=== PATIENT | female | born 1970 | race Caucasian/White ===

== ENCOUNTER 2024-05-31 10:09 | Observation (INO) ==
--- NOTE | 2024-05-03 13:14 | PAT Medication Instructions ---
Medication Instructions Date of Service May 03, 2024 Home Medications bupropion HCl 300 mg 24 hr tablet, extended release 300 mg PO HS hydrochlorothiazide 25 mg tablet 25 mg PO QAM norgestrel 0.3 mg-ethinyl estradiol 30 mcg tablet (Elinest) 1 tab PO HS nortriptyline 25 mg capsule 100 mg PO HS pantoprazole 40 mg tablet,delayed release 40 mg PO HS potassium chloride 20 mEq tablet,extended release 20 meq PO HS venlafaxine 150 mg capsule,extended release 24 hr 150 mg PO HS venlafaxine 75 mg tablet,extended release 24 hr 75 mg PO HS ASK your prescriber and surgeon norgestrel 0.3 mg-ethinyl estradiol 30 mcg tablet (Elinest) 1 tab PO HS DO NOT take the morning of surgery hydrochlorothiazide 25 mg tablet 25 mg PO QAM Take evening before surgery bupropion HCl 300 mg 24 hr tablet, extended release 300 mg PO HS nortriptyline 25 mg capsule 100 mg PO HS pantoprazole 40 mg tablet,delayed release 40 mg PO HS potassium chloride 20 mEq tablet,extended release 20 meq PO HS venlafaxine 150 mg capsule,extended release 24 hr 150 mg PO HS venlafaxine 75 mg tablet,extended release 24 hr 75 mg PO HS OTHERWISE NOTHING TO EAT OR DRINK AFTER MIDNIGHT Other Notes If you have any questions please call us at [phone] or [phone] or [phone] or [phone]
--- NOTE | 2024-05-10 11:54 | Anesthesiology Consultation ---
Date of Service May 10, 2024 Assessment & Plan (1) Encounter for pre-operative examination: Chart Review Chart Review: Acceptable Risk for Surgery (pending PCP clearance ) and Patient seen in Pre Admission Testing - Awaiting PCP clearance 05/17/24 (Dr. Ashia Solomon [place], [place]) - Check test AM DOS Loose front lower tooth (see physical exam)- discussed with Dr Lizarraga- recommended patient attempt to see dentist prior to surgery to see if tooth needs removed. If unable to see dentist preop- patient can still proceed but will need to use extra caution with intubation. Per PAT appt on 05/10/24, no recent illness/disease exposures, illness related symptoms, or recent illness/disease positive tests. Will leave to surgeon's discretion if preop Covid testing needed Teaching & Discussion Pre-Anesthesia Teaching/Discussion Notes: Instructed NPO after midnight before surgery,except medications with 15 cc of water. Medication instructions provided according to the PAT guidelines. History Surgery Operation Date: 05/31/24 10:05 Proposed Procedures p L4-L5 Decompression and Fusion Spinal Cord Monitoring - Jorge A Foy DO Height/Weight Height: 5 ft 4 in Weight: 132.1 kg Allergies Allergy/AdvReac Type Severity Reaction Status Date / Time ciprofloxacin [From Cipro] Allergy Intermediate Rash Verified 05/02/24 10:23 latex Allergy Intermediate Blister Verified 05/02/24 10:23 morphine Allergy Intermediate personality Verified 05/02/24 10:23 changes Medications Home Medications Medication Instructions Recorded Confirmed Last Taken bupropion HCl 300 mg 24 hr tablet, 300 mg PO HS 05/02/24 05/02/24 Unknown extended release hydrochlorothiazide 25 mg tablet 25 mg PO QPM 05/02/24 05/10/24 Unknown norgestrel 0.3 mg-ethinyl 1 tab PO HS 05/02/24 05/02/24 Unknown estradiol 30 mcg tablet (Elinest) nortriptyline 25 mg capsule 100 mg PO HS 05/02/24 05/02/24 Unknown pantoprazole 40 mg tablet,delayed 40 mg PO HS 05/02/24 05/02/24 Unknown release potassium chloride 20 mEq 20 meq PO HS 05/02/24 05/02/24 Unknown tablet,extended release venlafaxine 150 mg 150 mg PO HS 05/02/24 05/02/24 Unknown capsule,extended release 24 hr venlafaxine 75 mg tablet,extended 75 mg PO HS 05/02/24 05/02/24 Unknown release 24 hr Past Medical History Medical History Bipolar disorder Depression GERD (gastroesophageal reflux disease) well controlled and stable History of COVID-2019- no residual issues Hypertension Kidney stones present and hx of Osteoarthritis Post traumatic stress disorder Snores unaware if any apnea hx of sleep study many years ago - unsure of results Thyroid nodule multiple- monitored yearly Exercise / Class Metabolic Activity III < 4 Walking/Shop/Light housework (one flight of stairs - mild SOB, no chest pain ) Past Surgical History Surgical History History of ankle surgery left History of carpal tunnel release bilat History of section x2 History of cystoscopy History of repair of rotator cuff bilat History of tooth extraction Hx of foot surgery left x2 for fx's Hx of hand surgery right, pin in middle finger for fx S/P epidural steroid injection and nerve blocks/ablations to lumbar area Past Anesthesia History No Hx of Anesthesia Complications (with exception to remote history of shoulder surgery many years ago- had to be "given medication to reverse anesthesia"- specifics unknown - possibly given too much - no issues with subsequent issues with surgeries) and No Family Hx of Anesthesia Complications History of PONV No Hx of PONV and No Hx of Motion Sickness Social History Smoking Status: Never smoker Do You Dip or Chew Tobacco: No Hx Alcohol Use: Yes Alcohol type: wine alcohol intake frequency: holidays/special occasions only Hx Substance Use: No substance use type: does not use Review of Systems Patient denies chest pain, shortness of breath, dyspnea on exertion, cough, wheezing, palpitations. No hx of seizures, stroke, VT. No hx of blood clots or blood transfusions Physical Exam Vital Signs VITALS BP 128/81 P 86 TEMP 98.2 SP02 95% RESP 16 Constitutional no acute distress ENMT Mouth: + small oral opening (mild); no TMJ clicking Thyromental Distance: > or= 3.5 Finger Breadths (3.5) Mallampati Class: III Mouth / Teeth: 2 1. Loose Neck neck extension not limited Respiratory normal respiratory effort; no respiratory distress Auscultation: lungs clear to auscultation bilaterally; no wheezes Cardiovascular Rate/Rhythm: regular rate and regular rhythm Heart Sounds: no murmur Vessels: no carotid bruit Musculoskeletal Spine: no pain with cervical ROM Extremities: extremities normal to inspection Psychiatric Orientation: alert Lab Results Anesthesia Preop Results Results Anesthesia Widget: 2 WBC 6.11 K/ul (4.8-10.8) 05/10/24 Hgb 14.0 g/dl (12.0-16.0) 05/10/24 Hct 41.5 % (37.0-47.0) 05/10/24 Plt 320 K/uL (130-400) 05/10/24 Na 139 mmol/L (136-145) 05/10/24 K 3.9 mmol/L (3.5-5.1) 05/10/24 Cl 106 mmol/L (98-107) 05/10/24 CO2 26 mmol/L (21-32) 05/10/24 BUN 19 mg/dl (6-23) 05/10/24 Creat 0.87 mg/dl (0.6-1.2) 05/10/24 Glucose Level 103 mg/dl (70-99(Fasting)) H 05/10/24 PT 10.6 Seconds (9.0-12.0) 05/10/24 PTT 27 Seconds (21-31) 05/10/24 INR 1.0 (0.9-1.1) 05/10/24 Urine Color Yellow 05/10/24 Urine Appearance Clear (Clear) 05/10/24 Urine pH 7.0 (4.5-7.5) 05/10/24 Urine Specific [place] 1.022 (1.000-1.030) 05/10/24 Urine Protein Negative (Negative) 05/10/24 Urine Glucose (UA) Negative (Negative) 05/10/24 Urine Ketones Trace (Negative) H 05/10/24 Urine Blood Negative (Negative) 05/10/24 Urine Nitrite Negative (Negative) 05/10/24 Urine Bilirubin Negative (Negative) 05/10/24 Urine Urobilinogen Negative (Negative) 05/10/24 Urine Leukocyte Esterase Negative (Negative) 05/10/24 Blood Type O Positive 05/10/24 Antibody Screen NEGATIVE 05/10/24 Testing Electrocardiogram Date: 05/10/24 Findings: + NSR @ (95bpm) Normal EKG per cardio Chest X-Ray Date: 05/10/24 Findings: + NAD
[2024-05-31 11:09] LABS: Pregnancy Test, Serum Negative (Negative)
[2024-05-31] MEDS ORDERED: ONDANSETRON INJ 2 MG/ML 2 ML VIAL ONE (11:16)
[2024-05-31] MEDS ORDERED: PROPOFOL IV EMULSION 10 MG/ML 20 ML VIAL IV ONE (11:16)
[2024-05-31] MEDS ORDERED: ROCURONIUM BROMIDE 10 MG/ML 5 ML VIAL IV ONE ×3 (11:16→13:01)
[2024-05-31] MEDS ORDERED: LIDOCAINE 2% 2 ML VIAL/AMP(20MG/ML) INFIL ONE ×2 (11:16→11:17)
[2024-05-31] MEDS: LR 60ML/HR IV SCH (11:16)
[2024-05-31] MEDS ORDERED: MIDAZOLAM HCL 1 MG/ML 2ML VIAL ONE (11:16)
[2024-05-31] MEDS ORDERED: fentaNYL citrate PF 100 MCG/2 ML VIAL ONE (11:16)
[2024-05-31] MEDS ORDERED: DEXAMETHASONE SOD INJ 4 MG/ML VIAL ONE ×2 (11:30)
[2024-05-31] MEDS: GABAPENTIN 900 MG DOSE PO SCH (11:38)
[2024-05-31] MEDS: CeleBREX 200 MG CAP PO SCH (11:38)
[2024-05-31] MEDS: ACETAMINOPHEN 500 MG TAB PO SCH (11:38)
[2024-05-31] MEDS ORDERED: ATROPINE SULFATE 0.1 MG/ML 10ML SYR IV PRN (11:39)
[2024-05-31] MEDS ORDERED: ePHEDrine sulfate 50 MG/ML AMP IV PRN (11:39)
[2024-05-31] MEDS ORDERED: ONDANSETRON INJ 2 MG/ML 2 ML VIAL IV PRN ×2 (11:39→16:35)
--- NOTE | 2024-05-31 11:55 | History & Physical Bridge Note ---
Date of Service May 31, 2024 History & Physical Bridge Note I have examined the patient, reviewed the History & Physical and in the interval since the performance of the History & Physical I have noted the following changes of clinical significance: no changes noted
--- NOTE | 2024-05-31 11:56 | History & Physical Report ---
Date of Service May 31, 2024 Assessment & Plan (1) Spondylolisthesis, lumbar region: Plan: L4-L5 decompression and fusion History of Present Illness Chief Complaint: Back and bilateral leg pain Primary Care Provider: Ashia Ashton DO This is a 54-year-old female who presents for chronic persistent back and leg pain after failing course of nonoperative care she is here for surgical invention. Allergies Allergy/AdvReac Type Severity Reaction Status Date / Time Cipro Allergy Intermediate hives Verified 05/11/24 15:21 ciprofloxacin [From Cipro] Allergy Intermediate Rash Verified 05/31/24 10:53 Quinolones Allergy Intermediate RASH Verified 05/31/24 10:53 latex Allergy Mild redness Verified 05/31/24 10:53 and rash morphine AdvReac Intermediate makes me Verified 05/31/24 10:53 crazy Home Medications Medication Instructions Recorded Confirmed Type Ergocalciferol (Vitamin D Cap) 1 tab PO 2XWK ##0 10/26/10 05/31/24 History bupropion HCl 300 mg 24 hr tablet, 300 mg PO HS 05/02/24 05/31/24 History extended release (Wellbutrin XL) hydrochlorothiazide 25 mg tablet 25 mg PO QAM 05/02/24 05/31/24 History norgestrel 0.3 mg-ethinyl 1 tab PO HS 05/02/24 05/31/24 History estradiol 30 mcg tablet (Elinest) nortriptyline 25 mg capsule 100 mg PO HS 05/02/24 05/31/24 History pantoprazole 40 mg tablet,delayed 40 mg PO HS 05/02/24 05/31/24 History release potassium chloride 20 mEq 20 meq PO HS 05/02/24 05/31/24 History tablet,extended release venlafaxine 150 mg 150 mg PO HS 05/02/24 05/31/24 History capsule,extended release 24 hr venlafaxine 75 mg tablet,extended 75 mg PO HS 05/02/24 05/31/24 History release 24 hr Past Med/Surg History Problem List (Updated 05/31/24 @ 11:56 by Jorge A Foy DO) Spondylolisthesis, lumbar region Encounter for pre-operative examination History of Medical History (Updated 05/31/24 @ 11:56 by Jorge A Foy DO) Osteoarthritis Kidney stones present and hx of GERD (gastroesophageal reflux disease) well controlled and stable Thyroid nodule multiple- monitored yearly Bipolar disorder Post traumatic stress disorder Depression Hypertension History of COVID-19 2019- no residual issues Snores unaware if any apnea hx of sleep study many years ago - unsure of results Surgical History S/P epidural steroid injection and nerve blocks/ablations to lumbar area Hx of foot surgery left x2 for fx's History of ankle surgery left Hx of hand surgery right, pin in middle finger for fx History of repair of rotator cuff bilat History of carpal tunnel release bilat History of cystoscopy History of section x2 History of tooth extraction Social History (System 05/11/24 @ 15:21 by Leonarda Shannon) Smoking Status: Never smoker Second Hand Exposure: Yes (as child); Do You Dip or Chew Tobacco: No; Tobacco Cessation Education Requested by Patient: No Hx Alcohol Use: Yes Alcohol type: wine Hx Substance Use: No Preferred Language: Hong Konger Communication Ability: Effective [employer] Psychiatrist Required: No Beliefs That Will Affect Care: None Current Living Situation: Spouse Other Information That Helps Us Care for You: No Feels Safe at Home: Yes Safety Concerns: Feels Safe At This Time Assistive Devices: Glasses Physical Exam Physical Exam: Patient is alert and oriented heart regular in rhythm Lungs clear Results & Data Results & Data Vital Signs (Past 12 Hours) Vital Signs Temp Pulse Resp BP Pulse Ox O2 Del Method 05/31/24 11:03 37 C 94 H 20 147/84 H 97 Room Air
[2024-05-31] MEDS: ceFAZolin 3000MG 3,000 MG/72.5 ML BAG IV SCH (12:21)
[2024-05-31] MEDS ORDERED: PHENYLEPHRINE 100MCG/ML 5ML SYR ONE ×2 (12:51→13:06)
[2024-05-31] MEDS: BUPIVACAINE/EPINEPHRINE 0.25% 1:200,000 30 ML VIAL ONE (13:03)
[2024-05-31] MEDS: ceFAZolin 330 MG/ML 1 GM VIAL ONE (13:04)
[2024-05-31] MEDS ORDERED: PHENYLEPHRINE HCL 10 MG/ML VIAL ONE (13:14)
[2024-05-31] MEDS: FLOSEAL HEMOSTATIC MATRIX 10ML TOP ONE (13:50)
[2024-05-31] MEDS ORDERED: SUGAMMADEX SODIUM 200 MG/2 ML VIAL IV ONE (13:52)
--- NOTE | 2024-05-31 14:03 | Operative Report ---
Post Operative Report Pre & Post Diagnosis Operation Date: 05/31/24 11:55 Pre-Op Diagnosis: #1 spondylolisthesis of Lumbar Region Spinal Stenosis #2 lumbar spondylosis with radiculopathy #3 lumbar spinal stenosis #4 morbid obesity Post-Op Diagnosis: Same I identified the patient and participated in the time-out.: Yes Procedure Operation Date: 05/31/24 11:55 #1 lumbar decompression with bilateral medial facetectomies and foraminotomies L3-L4 L4-L5. #2 posterior spinal fusion L4-L5. #3 placed posterior instrumentation using camber L4-L5. #4 interbody fusion L4-L5 #5 placement Spira 13 x 26 mm x 2 at L4-5 and #6 placement locally harvested morselized autograft in the posterior gutters. #7 placement infuse collagen sponge combined with Koros in the posterior lateral gutters and os design and interbody space. #8 application of versa wrap over the exposed dura. Surgeon Jorge A Foy, DO [employer] [facility] Consultant Leticia Anne Estimated Blood Loss 300 Findings See Below The patient is 5 foot 4 weighing over 131 kg with a BMI in excess of 49. The patient's body habitus did create significant technical difficulty with positioning exposure and the procedure itself. This added over 50% increased operative time. And recommending a modifier 22. Specimens None Indications This is a 54-year-old female presents above-mentioned diagnosis after failing course of nonoperative care is here for surgical invention. Description of Procedure Patient was met with identified informed consent obtained. Patient was then taken to the operative suite underwent intubation placed in a prone position on the Nate table atop the Sp frame. All bony promises well-padded eyes in spected to ensure no external pressure placed upon them. This point the lumbar spine was prepped and draped in normal sterile fashion. Sharp dissection with the assistance of Bovie cautery from down to and exposing the lamina transverse processes of L4-L5. From caudal to cephalad fashion complete laminectomy of L4 was performed including bilateral medial facetectomies and foraminotomies addressing severe spinal stenosis. This is followed by partial laminectomy of L3 with bilateral medial facetectomies to address all subarticular stenosis. Pedicle screws were then placed in L4-L5 bilaterally with assistance of fluoroscopy and purposes peggy placed. By way of transfer approach on the right a discectomy of L4-5 was performed endplates guarded to subcortical bleeding bone and a 13 x 26 mm Spira cage filled with os design bone graft tapped in position. Then proceeded to the left transforaminal region at L4-5. Again discectomy performed. Endplates guided to subcortical bleeding bone and a second 13 x 26 mm Spira cage filled with os designed tapped in position. The rods were then compressed locked in final position bilaterally. The transverse processes of L4-5 burred to subcortical waiting bone. Infuse collagen sponge bath Koros and local autograft placed in the posterior gutters. 15 round IBAN drain inserted. The incision was then closed with 1 Vicryl the fascia 2-0 Vicryl subcutaneously and 4 Monocryl for final skin closure. Steri-Strips and sterile dressing placed. Patient waken taken to PACU stable condition. Please note spinal cord monitoring was utilized at the procedure no changes noted. Leticia Anne was present at the entire surgery while the patient positioning complex portion of the surgery and final skin closure. I attest to the content of the Intraoperative Record and any orders documented therein. Any exceptions are noted below.
--- NOTE | 2024-05-31 14:05 | Fluoroscopy Report ---
FL lumbar spine 2-3V CLINICAL HISTORY: L4-L5 DECOMPRESSION AND FUSION COMPARISON STUDY: None FLUOROSCOPY TIME: 23 seconds FLUOROSCOPY IMAGES: 2 EXPOSURE DOSE: 35 mGy FINDINGS: Fluoroscopy was provided for lower lumbar metallic fusion. IMPRESSION: Intraoperative fluoroscopy. ACT 112: Negative or not required by law. Electronically signed by: Mahesh Toledo M.D. 05/31/2024 2:03 PM
[2024-05-31] MEDS: fentaNYL citrate PF 100 MCG/2 ML VIAL IV PRN (14:25)
[2024-05-31] MEDS: KETOROLAC 30 MG/ML VIAL IV ONE (15:16)
--- NOTE | 2024-05-31 15:36 | Anesthesiology Progress Note ---
Date of Service May 31, 2024 Anesthesia Post Procedure Vital Signs Vital Signs: Temp Pulse Pulse Resp BP BP Pulse Ox 05/31/24 15:30 90 17 126/72 97 05/31/24 15:20 85 12 118/67 96 05/31/24 15:10 90 20 125/70 93 05/31/24 15:00 86 14 128/62 93 05/31/24 14:50 85 18 117/69 99 05/31/24 14:40 80 15 128/74 99 05/31/24 14:30 85 14 124/99 100 05/31/24 14:20 81 12 134/79 99 05/31/24 14:18 98.2 F 85 12 118/83 95 05/31/24 11:03 98.6 F 94 H 20 147/84 H 97 O2 Del Method O2 Flow Rate 05/31/24 15:30 Nasal Cannula 2 05/31/24 15:20 Nasal Cannula 2 05/31/24 15:10 Nasal Cannula 2 05/31/24 15:00 Nasal Cannula 2 05/31/24 14:50 Oxymask 2 05/31/24 14:40 Oxymask 5 05/31/24 14:30 Oxymask 5 05/31/24 14:20 Oxymask 5 05/31/24 14:18 Oxymask 5 05/31/24 11:03 Room Air Pain Intensity Lower Back: Pain Intensity: 6 Left Leg: Pain Intensity: 8 Transfer of Care Handoff Completed per policy Notes Mental Status: alert / awake / arousable and participated in evaluation Patient Amnestic to Procedure: Yes Nausea / Vomiting: adequately controlled Pain: adequately controlled Airway Patency, RR, SpO2: stable & adequate BP & HR: stable & adequate Hydration State: stable & adequate Anesthetic Complications: no major complications apparent and Pt Satisfied with anesthetic care
[2024-05-31] MEDS ORDERED: MAGNESIUM HYDROXIDE SUSP 30 ML UDC PO PRN (16:35)
[2024-05-31] MEDS ORDERED: DO NOT ADMINISTER PNEUMOCOCCAL VACCINE PRN (16:35)
[2024-05-31] MEDS ORDERED: PROMETHAZINE 12.5 MG/50.5 ML BAG IV PRN (16:35)
[2024-05-31] MEDS ORDERED: NALOXONE HCL 0.4 MG/1 ML VIAL/CARP IV PRN (16:35)
[2024-05-31] MEDS ORDERED: hydrOXYzine HCl 25 MG TAB PO PRN (16:35)
[2024-05-31] MEDS ORDERED: traMADol HCL 50 MG TABLET PO PRN (16:35)
[2024-05-31] MEDS ORDERED: DO NOT ADMINISTER FLU VACCINE PRN (16:35)
[2024-05-31] MEDS ORDERED: bisacodyL 10 MG SUPP PR PRN (16:35)
[2024-05-31] MEDS ORDERED: diphenhydrAMINE Capsule 25 MG CAP PO PRN (16:35)
[2024-05-31] MEDS ORDERED: ONDANSETRON 4 MG OD TAB PO PRN (16:35)
[2024-05-31] MEDS ORDERED: METOCLOPRAMIDE HCL INJ 5 MG/ML 2 ML VIAL IV PRN (16:35)
[2024-05-31] MEDS ORDERED: ALUMINUM/MAGNESIUM SUSP 30 ML UDC PO PRN (16:35)
[2024-05-31] MEDS ORDERED: SOD PHOSPHATE/SOD BIPHOSPHATE ENEMA 132 ML BTL PR PRN (16:35)
[2024-05-31] MEDS ORDERED: ACETAMINOPHEN 1,000 MG/100 ML VIAL IV PRN (16:35)
[2024-05-31] MEDS ORDERED: FAMOTIDINE 20 MG TAB PO PRN (16:35)
[2024-05-31] MEDS ORDERED: LORazepam 2 MG/1 ML VIAL IV PRN (16:35)
[2024-05-31] MEDS ORDERED: HYDROmorphone INJ 0.5 MG/0.5 ML SYR IV PRN (16:35)
[2024-05-31] MEDS ORDERED: LORazepam 0.5 MG TAB PO PRN (16:35)
--- NOTE | 2024-05-31 17:03 | Hospitalist Consultation ---
<Statement entered by Frantz Temple MD - 05/31/24 20:43> I have seen and discussed the case with the collaborating advanced practitioner. I agree with the above H&P. I have reviewed and confirmed the patients medical history, the findings on physical examination, and the patients diagnosis and treatment plan with Jabari ALMEIDA and agree with the information documented. Patient doing well post procedure. Having pain with spasticity, agree with robaxin. Will do IS, monitor Hgb and creatinine. Appreciate consultation from ortho. I spent a total of 20 minutes coordinating, documenting, and providing care for this patient excluding time spent in the performance of separately billed services. All of the aforementioned completed outside of collaborating with the assigned advanced practitioner for a full treatment plan. I have reviewed the advanced practitioner's documentation, and I agree with, and take responsibility for the plan of care Date of Consultation May 31, 2024 Assessment & Plan (1) Spondylolisthesis, lumbar region: (2) Encounter for pre-operative examination: (3) GERD (gastroesophageal reflux disease): (4) Bipolar disorder: (5) Post traumatic stress disorder: (6) Depression: (7) Hypertension: Plan Assessment and plan: Lumbar spondylolisthesis: S/p L4-5 lumbar decompression05/31: Pain control/DVT prophylaxis/PT/OT Hx HTN: Continue HCTZ Hx depression/bipolar/PTSD: Continue nortriptyline/Wellbutrin/Effexor Hx GERD: Continue pantoprazole Recheck a CBC/CMP in a.m. to monitor kidney function and hemoglobin A total of 45 minutes was spent on chart review/facilitating plan of care/reviewing diagnostic data/discussion with consultants Full code DVT prophylaxis: Per primary team History of Present Illness Reason for Consultation: Postop medical management Requesting Physician: Jorge A Foy DO Attending Physician: Jorge A Foy DO History of Present Illness The patient is a 54-year-old female with a past medical history of depression/anxiety/GERD/HTN who presents to the hospital on 05/31/2024 s/p L4-L5 decompression and fusion. We are asked to see the patient for postop medical management On exam, patient endorses a charley horse in her left leg. She otherwise reports her lower back pain is controlled. She denies any chest pain/shortness of breath/fever/chills/abdominal pain/nausea/vomiting/diarrhea. Allergies Allergy/AdvReac Type Severity Reaction Status Date / Time Cipro Allergy Intermediate hives Verified 05/11/24 15:21 ciprofloxacin [From Cipro] Allergy Intermediate Rash Verified 05/31/24 10:53 Quinolones Allergy Intermediate RASH Verified 05/31/24 10:53 latex Allergy Mild redness Verified 05/31/24 10:53 and rash morphine AdvReac Intermediate makes me Verified 05/31/24 10:53 crazy Home Medications Medication Instructions Recorded Confirmed Type Ergocalciferol (Vitamin D Cap) 1 tab PO 2XWK ##0 10/26/10 05/31/24 History bupropion HCl 300 mg 24 hr tablet, 300 mg PO HS 05/02/24 05/31/24 History extended release (Wellbutrin XL) hydrochlorothiazide 25 mg tablet 25 mg PO QAM 05/02/24 05/31/24 History norgestrel 0.3 mg-ethinyl 1 tab PO HS 05/02/24 05/31/24 History estradiol 30 mcg tablet (Elinest) nortriptyline 25 mg capsule 100 mg PO HS 05/02/24 05/31/24 History pantoprazole 40 mg tablet,delayed 40 mg PO HS 05/02/24 05/31/24 History release potassium chloride 20 mEq 20 meq PO HS 05/02/24 05/31/24 History tablet,extended release venlafaxine 150 mg 150 mg PO HS 05/02/24 05/31/24 History capsule,extended release 24 hr venlafaxine 75 mg tablet,extended 75 mg PO HS 05/02/24 05/31/24 History release 24 hr Patient History Medical History (Updated 05/31/24 @ 11:56 by Jorge A Foy DO) Osteoarthritis Kidney stones present and hx of GERD (gastroesophageal reflux disease) well controlled and stable Thyroid nodule multiple- monitored yearly Bipolar disorder Post traumatic stress disorder Depression Hypertension History of COVID-2019- no residual issues Snores unaware if any apnea hx of sleep study many years ago - unsure of results Surgical History S/P epidural steroid injection and nerve blocks/ablations to lumbar area Hx of foot surgery left x2 for fx's History of ankle surgery left Hx of hand surgery right, pin in middle finger for fx History of repair of rotator cuff bilat History of carpal tunnel release bilat History of cystoscopy History of section x2 History of tooth extraction Social History (System 05/11/24 @ 15:21 by Leonarda Shannon) Smoking Status: Never smoker Second Hand Exposure: Yes (as child); Do You Dip or Chew Tobacco: No; Tobacco Cessation Education Requested by Patient: No Hx Alcohol Use: Yes Alcohol type: wine Hx Substance Use: No Preferred Language: Khmer Communication Ability: Effective French Tutor Required: No Beliefs That Will Affect Care: None Current Living Situation: Spouse Other Information That Helps Us Care for You: No Feels Safe at Home: Yes Safety Concerns: Feels Safe At This Time Assistive Devices: Glasses Review of Systems Review of Systems: All systems reviewed & are unremarkable except as noted in HPI & below Physical Exam Constitutional: WD/WN, vitals as above well developed, well nourished and + overweight Eyes: PERRL, conjunctivae normal, anicteric sclerae ENMT: external ear and nose normal, oropharynx normal Neck: trachea midline, no thyromegaly Respiratory: normal respiratory effort, lungs clear to auscultation Cardiovascular: RRR, no murmur, no edema Gastrointestinal (Abdomen): normal bowel sounds, soft, nontender, no hepatosplenomegaly Musculoskeletal: no cyanosis or clubbing, extremities motor strength 5/5 (5/5 strength in lower extremities, pain in left calf) Skin: no rashes, warm and dry Neurologic: PERRL, EOMI, accommodation nl, no face palsy, no dysarthria Psychiatric: A+Ox3, euthymic affect Lymphatic: no cervical or axillary lymphadenopathy Results & Data Results & Data Vital Signs (Past 12 Hours) Vital Signs Temp Pulse Pulse Pulse Resp BP BP 05/31/24 16:41 36.7 C 91 H 16 117/73 05/31/24 16:15 37.1 C 89 16 144/77 H 05/31/24 16:00 80 14 122/83 05/31/24 15:50 83 13 136/76 05/31/24 15:40 36.7 C 88 16 109/68 05/31/24 15:30 90 17 126/72 05/31/24 15:20 85 12 118/67 05/31/24 15:10 90 20 125/70 05/31/24 15:00 86 14 128/62 05/31/24 14:50 85 18 117/69 05/31/24 14:40 80 15 128/74 05/31/24 14:30 85 14 124/99 05/31/24 14:20 81 12 134/79 05/31/24 14:18 36.8 C 85 12 118/83 05/31/24 11:03 37 C 94 H 20 147/84 H Pulse Ox O2 Del Method O2 Flow Rate 05/31/24 16:41 91 Room Air 05/31/24 16:15 96 Room Air 05/31/24 16:00 97 Nasal Cannula 2 05/31/24 15:50 97 Nasal Cannula 2 05/31/24 15:40 98 Nasal Cannula 2 05/31/24 15:30 97 Nasal Cannula 2 05/31/24 15:20 96 Nasal Cannula 2 05/31/24 15:10 93 Nasal Cannula 2 05/31/24 15:00 93 Nasal Cannula 2 05/31/24 14:50 99 Oxymask 2 05/31/24 14:40 99 Oxymask 5 05/31/24 14:30 100 Oxymask 5 05/31/24 14:20 99 Oxymask 5 05/31/24 14:18 95 Oxymask 5 05/31/24 11:03 97 Room Air Laboratory Results Laboratory Results HCG, Qual Negative (Negative) 05/31/24 10:37 Impressions Lumbar Spine X-Ray 05/31/24 11:55 [place] lumbar spine 2-3V CLINICAL HISTORY: L4-L5 DECOMPRESSION AND FUSION COMPARISON STUDY: None FLUOROSCOPY TIME: 23 seconds FLUOROSCOPY IMAGES: 2 EXPOSURE DOSE: 35 mGy FINDINGS: Fluoroscopy was provided for lower lumbar metallic fusion. IMPRESSION: Intraoperative fluoroscopy. ACT 112: Negative or not required by law. Electronically signed by: Mahesh Toledo M.D. 05/31/2024 2:03 PM
[2024-05-31] MEDS: LACTATED RINGER'S 1,000 ML IV SCH (17:25)
[2024-05-31] MEDS: HYDROmorphone INJ 1 MG/ML SYRINGE IV PRN (19:20)
[2024-05-31] MEDS: POTASSIUM CHLORIDE CRTAB 20 MEQ TABCR PO SCH (20:55)
[2024-05-31] MEDS: buPROPion XL 300 MG TABCR PO SCH (20:55)
[2024-05-31] MEDS: NORTRIPTYLINE HCL 25 MG CAP PO SCH (20:55)
[2024-05-31] MEDS: PANTOprazole 40 MG TAB PO SCH (20:55)
[2024-05-31] MEDS: VENLAFAXINE HCL XR 150 MG CAPXR PO SCH (20:55)
[2024-05-31] MEDS: VENLAFAXINE HCL XR 75 MG CAPXR PO SCH (20:55)
[2024-05-31] MEDS: ceFAZolin 2000MG 2,000 MG/15 ML SYR IV SCH (20:56)
[2024-05-31] MEDS: DOCUSATE SODIUM/SENNA 50/8.6MG TAB PO SCH (20:56)
[2024-05-31] MEDS: oxyCODONE HCL IR 5 MG TAB (IMMEDIATE RELEASE) PO PRN (22:11)
[2024-06-01] MEDS: METHOCARBAMOL 500 MG TABLET PO PRN (03:28)
[2024-06-01] MEDS: POLYETHYLENE (MIRALAX) 17 GM PACK PO SCH (05:36)
[2024-06-01 08:11] LABS: Basophils # (auto) 0.01 K/uL (0.00-0.20); Basophils % (auto) 0.1 %; Hematocrit (blood only) 35.7 % (37.0-47.0); Hemoglobin 12.1 g/dl (12.0-16.0); Immature Granulocytes # (auto) 0.07 K/uL (0.01-0.20); Immature Granulocytes % (auto) 0.5 %; Lymphocytes # (auto) 1.13 K/uL (1.20-3.40); Lymphocytes % (auto) 8.8 %; Mean Corpuscular Hemoglobin 29.7 pg (25.0-34.0); Mean Corpuscular Hgb Conc 33.9 g/dL (32.0-36.0); Mean Corpuscular Volume 87.5 fL (80.0-100.0); Mean Platelet Volume 10.5 fL (9.4-12.4); Monocytes % (auto) 5.4 %; Neutrophils % (auto) 85.2 %; Platelet Count 310 K/uL (130-400); RDW Coefficient of Variation 13.2 % (11.5-14.5); RDW Standard Deviation 41.9 fL (36.4-46.3); Red Blood Count 4.08 M/uL (4.20-5.40); White Blood Count 12.91 K/ul (4.8-10.8)
[2024-06-01] MEDS: hydroCHLOROthiazide 25 MG TAB PO SCH (08:16)
[2024-06-01] MEDS: ERGOCALCIFEROL 1250 MCG (50,000 UNITS) CAP PO SCH (08:16)
[2024-06-01] MEDS: dexAMETHasone 6 MG in SYRINGE 0 ML IV SCH (08:16)
[2024-06-01 08:28] LABS: BUN Creatinine Ratio 29.5 (10-20); Calcium 8.3 mg/dl (8.6-10.3); Creatinine Clr Calc Pharmacy 112.4 ml/min; Potassium 4.8 mmol/L (3.5-5.1)
[2024-06-01] MEDS ORDERED: [UNRECOGNIZED DRUG - OTHER] PO SCH (09:00)
--- NOTE | 2024-06-01 10:07 | Orthopedic Progress Note ---
Date of Service June 01, 2024 Assessment & Plan (1) Spondylolisthesis, lumbar region: Plan: At this time we will encourage her to ambulate as tolerated. Doppler left lower extremity will be obtained. I will initiate gabapentin in case there is a neural component to her discomfort. Admission and Anticipated Discharge Date Admission Date: May 31, 2024 Subjective Patient's back pain is controlled. Right leg pain markedly improved. She struggling with left calf pain. Is worse with pressure and ambulation. Physical Exam Physical Exam: On exam she sitting up at the bedside. She is no back pain. This is good strength testing right lower extremity and left lower extremity. There is tenderness palpation of the lateral aspect of the left calf musculature. There is no tension signs. Results & Data Vital Signs (Past 12 Hours) Vital Signs Temp Pulse Resp BP Pulse Ox O2 Del Method 06/01/24 06:55 36.7 C 86 18 110/70 97 Room Air 06/01/24 03:00 36.3 C L 90 12 116/74 92 Room Air 05/31/24 22:46 36.9 C 87 12 128/77 94 Room Air Queries Orthopedic Spine Obesity: Yes
--- NOTE | 2024-06-01 13:32 | Ultrasound Report ---
LEFT LOWER EXTREMITY VENOUS DOPPLER HISTORY: pain COMPARISON STUDY: None FINDINGS: No evidence of DVT seen at the left lower extremity. IMPRESSION: No DVT seen. . ACT 112: Negative or not required by law. Electronically signed by: Mahesh Toledo M.D. 06/01/2024 1:30 PM
[2024-06-01] MEDS: ACETAMINOPHEN 500 MG TAB PO PRN (14:09)
[2024-06-01] MEDS: GABAPENTIN 300 MG CAP PO SCH (14:09)
--- NOTE | 2024-06-01 16:01 | Hospitalist Progress Note ---
Date of Service June 01, 2024 Assessment & Plan (1) Spondylolisthesis, lumbar region: (2) Encounter for pre-operative examination: (3) GERD (gastroesophageal reflux disease): (4) Bipolar disorder: (5) Post traumatic stress disorder: (6) Depression: (7) Hypertension: Plan Assessment and plan: Lumbar spondylolisthesis: S/p L4-5 lumbar decompression05/31: Pain control/DVT prophylaxis/PT/OT -incentive spirometer -trend Hgb, creatinine Hx HTN: Continue HCTZ Hx depression/bipolar/PTSD: Continue nortriptyline/Wellbutrin/Effexor Hx GERD: Continue pantoprazole Admission and Anticipated Discharge Date Admission Date: May 31, 2024 Subjective patient seen and examined at bedside. Patient is continues to have left leg pain, Ortho ordered Doppler and further workup. Otherwise surgical site feels fine per patient walking around fine. Review of Systems Review of Systems: CONSTITUTIONAL: Patient denies fevers, chills, sweats and weight changes. EYES: Patient denies any visual symptoms. EARS, NOSE, AND THROAT: No difficulties with hearing. No symptoms of rhinitis or sore throat. CARDIOVASCULAR: Patient denies chest pains, palpitations, orthopnea and paroxysmal nocturnal dyspnea. RESPIRATORY: No dyspnea on exertion, no wheezing or cough. GI: No nausea, vomiting, diarrhea, constipation, abdominal pain, hematochezia or melena. : No urinary hesitancy or dribbling. No nocturia or urinary frequency. No abnormal urethral discharge. MUSCULOSKELETAL: left leg pain NEUROLOGIC: No chronic headaches, no seizures. Patient denies numbness, tingling or weakness. PSYCHIATRIC: Patient denies problems with mood disturbance. No problems with anxiety. ENDOCRINE: No excessive urination or excessive thirst. DERMATOLOGIC: Patient denies any rashes or skin changes. Physical Exam Physical Exam: Gen: A&O 3 NAD HEENT: NCAT, EOMI, not icteric. External ears normal. No rhinorrhea. Moist mucous membranes. Neck: Supple, full range of motion, no observable masses, No meningeal sign. Lungs: No Respiratory distress. CV: RRR, no edema. Abdomen: Soft, nondistended, No rebound tenderness. MSK: No joint swelling, no redness. Noted surgical incision site. slight tenderness to palpation of left calf Skin: No rashes, petechiae, lesions. Normal color per patient. Neuro: Normal Gait, Grossly intact. Psych: Appropriate for situation. Results & Data Results & Data Vital Signs (Past 12 Hours) Vital Signs Temp Pulse Resp BP Pulse Ox O2 Del Method 06/01/24 15:23 36.9 C 97 H 16 116/69 93 Room Air 06/01/24 11:12 36.8 C 95 H 16 109/69 94 Room Air 06/01/24 06:55 36.7 C 86 18 110/70 97 Room Air Laboratory Results -personally reviewed, creatinine stable, leukocytosis likely reactionary Medications Administered Acetaminophen (Acetaminophen 500 Mg Tab) 1,000 mg PO Q8H PRN PRN Reason: MILD Pain Scale 1,2,3 & Pre PT Stop: 06/30/24 16:34 Last Admin: 06/01/24 14:09 Dose: 1,000 mg Documented By: TOÑA Bupropion HCl (Bupropion Xl 300 Mg Tabcr) 300 mg PO HS BETO Stop: 06/30/24 20:59 Last Admin: 05/31/24 20:55 Dose: 300 mg Documented By: PNTasneem Ergocalciferol (Ergocalciferol 1250 Mcg (50,000 Units) Cap) 1,250 mcg PO Q48H BETO Stop: 07/01/24 08:59 Last Admin: 06/01/24 08:16 Dose: 1,250 mcg Documented By: TOÑA Gabapentin (Gabapentin 300 Mg Cap) 300 mg PO TID BETO Stop: 07/01/24 13:59 Last Admin: 06/01/24 14:09 Dose: 300 mg Documented By: TOÑA Hydrochlorothiazide (Hydrochlorothiazide 25 Mg Tab) 25 mg PO QAM BETO Stop: 07/01/24 08:59 Last Admin: 06/01/24 08:16 Dose: 25 mg Documented By: AMS Hydromorphone HCl (Hydromorphone Inj 1 Mg/Ml Syringe) 1 mg IV Q3H PRN PRN Reason: SEVERE Pain (Scale 7,8,9,10) Stop: 06/14/24 16:34 Last Admin: 05/31/24 19:20 Dose: 1 mg Documented By: PNTasneem Dexamethasone 6 mg/ Syringe 1.5 mls @ 1 mls/min IV DAILY BETO Stop: 06/03/24 09:02 Last Admin: 06/01/24 08:16 Dose: 1 mls/min Documented By: TOÑA Methocarbamol (Methocarbamol 500 Mg Tablet) 500 mg PO TID PRN PRN Reason: Muscle Spasm Stop: 06/30/24 18:01 Last Admin: 06/01/24 03:28 Dose: 500 mg Documented By: HORACE Miscellaneous (Order Awaiting Action - Cierra) 1 each N/A QS [facility] Stop: 07/01/24 00:00 Last Admin: 06/01/24 14:38 Dose: Not Given Documented By: Admin: 06/01/24 07:12 Dose: Not Given Documented By: Admin: 06/01/24 01:13 Dose: Not Given Documented By: HORACE Nortriptyline HCl (Nortriptyline Hcl 25 Mg Cap) 100 mg PO [facility] Stop: 06/30/24 20:59 Last Admin: 05/31/24 20:55 Dose: 100 mg Documented By: HORACE Oxycodone HCl (Oxycodone Hcl Ir 5 Mg Tab (Immediate Release)) 5 - 10 mg PO Q4H PRN PRN Reason: Pain & Pre PT Stop: 06/14/24 16:34 Last Admin: 06/01/24 10:09 Dose: 5 mg Documented By: Admin: 05/31/24 22:11 Dose: 5 mg Documented By: HORACE Pantoprazole Sodium (Pantoprazole 40 Mg Tab) 40 mg PO [facility] Stop: 06/30/24 20:59 Last Admin: 05/31/24 20:55 Dose: 40 mg Documented By: HORACE Polyethylene Glycol (Polyethylene (Miralax) 17 Gm Pack) 17 gm PO Q6 BETO Stop: 07/01/24 05:59 Last Admin: 06/01/24 11:55 Dose: 17 gm Documented By: Admin: 06/01/24 05:36 Dose: 17 gm Documented By: HORACE Potassium Chloride (Potassium Chloride Crtab 20 Meq Tabcr) 20 meq PO [facility] Stop: 06/30/24 20:59 Last Admin: 05/31/24 20:55 Dose: 20 meq Documented By: HORACE Senna/Docusate Sodium (Docusate Sodium/Senna 50/8.6mg Tab) 2 tab PO [facility] Stop: 06/30/24 20:59 Last Admin: 05/31/24 20:56 Dose: 2 tab Documented By: HORACE Venlafaxine HCl (Venlafaxine Hcl Xr 75 Mg Capxr) 75 mg PO HS BETO Stop: 06/30/24 20:59 Last Admin: 05/31/24 20:55 Dose: 75 mg Documented By: HORACE Venlafaxine HCl (Venlafaxine Hcl Xr 150 Mg Capxr) 150 mg PO HS BETO Stop: 06/30/24 20:59 Last Admin: 05/31/24 20:55 Dose: 150 mg Documented By: HORACE
--- NOTE | 2024-06-02 08:28 | Orthopedic Progress Note ---
Date of Service June 02, 2024 Assessment & Plan (1) Spondylolisthesis, lumbar region: Plan: At this time we will continue physical therapy monitor her progress. Her Dopplers were negative. Suspect this will improve with time. Admission and Anticipated Discharge Date Admission Date: May 31, 2024 Subjective Back pain is controlled right leg pain improved. Left calf pain improving. Physical Exam Physical Exam: Patient is currently in bed. Appears comfortable. There is some modest tenderness palpation of the left calf it is improved from yesterday. Results & Data Vital Signs (Past 12 Hours) Vital Signs Temp Pulse Resp BP Pulse Ox O2 Del Method 06/02/24 07:06 36.6 C 93 H 18 151/84 H 97 Room Air Queries Orthopedic Spine Obesity: Yes
--- NOTE | 2024-06-02 13:53 | Hospitalist Progress Note ---
Date of Service June 02, 2024 Assessment & Plan (1) Spondylolisthesis, lumbar region: (2) Encounter for pre-operative examination: (3) GERD (gastroesophageal reflux disease): (4) Bipolar disorder: (5) Post traumatic stress disorder: (6) Depression: (7) Hypertension: Plan Assessment and plan: Lumbar spondylolisthesis: S/p L4-5 lumbar decompression05/31: Pain control/DVT prophylaxis/PT/OT -incentive spirometer -trend Hgb, creatinine Hx HTN: Continue HCTZ Hx depression/bipolar/PTSD: Continue nortriptyline/Wellbutrin/Effexor Hx GERD: Continue pantoprazole I spent a total of 40 minutes in direct patient care, including [id number] time with the patient and/or family, reviewing medical records, ordering and reviewing diagnostic tests, and coordinating care with other healthcare providers. This time includes: history taking, physical examination, medical decision making, counseling, ECG interpretation, imaging interpretation, lab interpretation, orders, and education, excluding time spent in the performance of separately billed services. Admission and Anticipated Discharge Date Admission Date: May 31, 2024 Subjective Patient seen and examined at bedside. Ms. Crawford is doing better today. Still having left leg pain, improved from yesterday. Review of Systems Review of Systems: CONSTITUTIONAL: Patient denies fevers, chills, sweats and weight changes. EYES: Patient denies any visual symptoms. EARS, NOSE, AND THROAT: No difficulties with hearing. No symptoms of rhinitis or sore throat. CARDIOVASCULAR: Patient denies chest pains, palpitations, orthopnea and paroxysmal nocturnal dyspnea. RESPIRATORY: No dyspnea on exertion, no wheezing or cough. GI: No nausea, vomiting, diarrhea, constipation, abdominal pain, hematochezia or melena. : No urinary hesitancy or dribbling. No nocturia or urinary frequency. No abnormal urethral discharge. MUSCULOSKELETAL: left leg pain NEUROLOGIC: No chronic headaches, no seizures. Patient denies numbness, tingling or weakness. PSYCHIATRIC: Patient denies problems with mood disturbance. No problems with anxiety. ENDOCRINE: No excessive urination or excessive thirst. DERMATOLOGIC: Patient denies any rashes or skin changes. Physical Exam Physical Exam: Gen: A&O 3 NAD HEENT: NCAT, EOMI, not icteric. External ears normal. No rhinorrhea. Moist mucous membranes. Neck: Supple, full range of motion, no observable masses, No meningeal sign. Lungs: No Respiratory distress. CV: RRR, no edema. Abdomen: Soft, nondistended, No rebound tenderness. MSK: No joint swelling, no redness. Noted surgical incision site. slight tenderness to palpation of left calf, improved Skin: No rashes, petechiae, lesions. Normal color per patient. Neuro: Normal Gait, Grossly intact. Psych: Appropriate for situation. Results & Data Results & Data Vital Signs (Past 12 Hours) Vital Signs Temp Pulse Resp BP Pulse Ox O2 Del Method 06/02/24 07:06 36.6 C 93 H 18 151/84 H 97 Room Air Medications Administered Acetaminophen (Acetaminophen 500 Mg Tab) 1,000 mg PO Q8H PRN PRN Reason: MILD Pain Scale 1,2,3 & Pre PT Stop: 06/30/24 16:34 Last Admin: 06/01/24 14:09 Dose: 1,000 mg Documented By: TOÑA Bupropion HCl (Bupropion Xl 300 Mg Tabcr) 300 mg PO HS BETO Stop: 06/30/24 20:59 Last Admin: 06/01/24 20:23 Dose: 300 mg Documented By: Admin: 05/31/24 20:55 Dose: 300 mg Documented By: HORACE Ergocalciferol (Ergocalciferol 1250 Mcg (50,000 Units) Cap) 1,250 mcg PO Q48H BETO Stop: 07/01/24 08:59 Last Admin: 06/01/24 08:16 Dose: 1,250 mcg Documented By: TOÑA Gabapentin (Gabapentin 300 Mg Cap) 300 mg PO TID BETO Stop: 07/01/24 13:59 Last Admin: 06/02/24 08:39 Dose: 300 mg Documented By: Admin: 06/01/24 20:23 Dose: 300 mg Documented By: Admin: 06/01/24 14:09 Dose: 300 mg Documented By: TOÑA Hydrochlorothiazide (Hydrochlorothiazide 25 Mg Tab) 25 mg PO QAM BETO Stop: 07/01/24 08:59 Last Admin: 06/02/24 08:38 Dose: 25 mg Documented By: Admin: 06/01/24 08:16 Dose: 25 mg Documented By: TOÑA Hydromorphone HCl (Hydromorphone Inj 1 Mg/Ml Syringe) 1 mg IV Q3H PRN PRN Reason: SEVERE Pain (Scale 7,8,9,10) Stop: 06/14/24 16:34 Last Admin: 05/31/24 19:20 Dose: 1 mg Documented By: HORACE Dexamethasone 6 mg/ Syringe 1.5 mls @ 1 mls/min IV DAILY BETO Stop: 06/03/24 09:02 Last Admin: 06/02/24 08:38 Dose: 1 mls/min Documented By: Admin: 06/01/24 08:16 Dose: 1 mls/min Documented By: TOÑA Methocarbamol (Methocarbamol 500 Mg Tablet) 500 mg PO TID PRN PRN Reason: Muscle Spasm Stop: 06/30/24 18:01 Last Admin: 06/02/24 09:48 Dose: 500 mg Documented By: Admin: 06/01/24 17:48 Dose: 500 mg Documented By: Admin: 06/01/24 03:28 Dose: 500 mg Documented By: HORACE Miscellaneous (Order Awaiting Action - Cierra) 1 each N/A QS [facility] Stop: 07/01/24 00:00 Last Admin: 06/02/24 08:40 Dose: Not Given Documented By: Admin: 06/02/24 01:06 Dose: Not Given Documented By: Admin: 06/01/24 14:38 Dose: Not Given Documented By: Admin: 06/01/24 07:12 Dose: Not Given Documented By: Admin: 06/01/24 01:13 Dose: Not Given Documented By: HORACE Nortriptyline HCl (Nortriptyline Hcl 25 Mg Cap) 100 mg PO HS BETO Stop: 06/30/24 20:59 Last Admin: 06/01/24 20:23 Dose: 100 mg Documented By: Admin: 05/31/24 20:55 Dose: 100 mg Documented By: HORACE Oxycodone HCl (Oxycodone Hcl Ir 5 Mg Tab (Immediate Release)) 5 - 10 mg PO Q4H PRN PRN Reason: Pain & Pre PT Stop: 06/14/24 16:34 Last Admin: 06/01/24 20:22 Dose: 5 mg Documented By: Admin: 06/01/24 10:09 Dose: 5 mg Documented By: Admin: 05/31/24 22:11 Dose: 5 mg Documented By: HORACE Pantoprazole Sodium (Pantoprazole 40 Mg Tab) 40 mg PO HS BETO Stop: 06/30/24 20:59 Last Admin: 06/01/24 20:23 Dose: 40 mg Documented By: PNTasneem Admin: 05/31/24 20:55 Dose: 40 mg Documented By: PNTasneem Polyethylene Glycol (Polyethylene (Miralax) 17 Gm Pack) 17 gm PO Q6 BETO Stop: 07/01/24 05:59 Last Admin: 06/02/24 11:56 Dose: 17 gm Documented By: Admin: 06/02/24 06:46 Dose: 17 gm Documented By: Admin: 06/02/24 01:07 Dose: Not Given Documented By: Admin: 06/01/24 17:48 Dose: 17 gm Documented By: Admin: 06/01/24 11:55 Dose: 17 gm Documented By: Admin: 06/01/24 05:36 Dose: 17 gm Documented By: HORACE Potassium Chloride (Potassium Chloride Crtab 20 Meq Tabcr) 20 meq PO HS BETO Stop: 06/30/24 20:59 Last Admin: 06/01/24 20:22 Dose: 20 meq Documented By: Admin: 05/31/24 20:55 Dose: 20 meq Documented By: HORACE Senna/Docusate Sodium (Docusate Sodium/Senna 50/8.6mg Tab) 2 tab PO HS BETO Stop: 06/30/24 20:59 Last Admin: 06/01/24 20:22 Dose: 2 tab Documented By: Admin: 05/31/24 20:56 Dose: 2 tab Documented By: HORACE Venlafaxine HCl (Venlafaxine Hcl Xr 75 Mg Capxr) 75 mg PO HS BETO Stop: 06/30/24 20:59 Last Admin: 06/01/24 20:23 Dose: 75 mg Documented By: Admin: 05/31/24 20:55 Dose: 75 mg Documented By: HORACE Venlafaxine HCl (Venlafaxine Hcl Xr 150 Mg Capxr) 150 mg PO HS BETO Stop: 06/30/24 20:59 Last Admin: 06/01/24 20:23 Dose: 150 mg Documented By: PNTasneem Admin: 02/27/25 20:55 Dose: 150 mg Documented By: HORACE
[2024-06-02 22:37] VITALS: RESP 20
[2024-06-03 06:55] VITALS: PULSE 92; TEMP 97.7; O2SAT 99
--- NOTE | 2024-06-03 09:48 | Discharge Summary ---
Date of Service June 03, 2024 Admission HPI Per Admitting Provider This is a 54-year-old female who presents for chronic persistent back and leg pain after failing course of nonoperative care she is here for surgical invention. Principal Diagnosis Lumbar spondylosis with radiculopathy Discharge Data Allergies Allergy/AdvReac Type Severity Reaction Status Date / Time Cipro Allergy Intermediate hives Verified 05/11/24 15:21 ciprofloxacin [From Cipro] Allergy Intermediate Rash Verified 05/31/24 10:53 Quinolones Allergy Intermediate RASH Verified 05/31/24 10:53 latex Allergy Mild redness Verified 05/31/24 10:53 and rash morphine AdvReac Intermediate makes me Verified 05/31/24 10:53 crazy Consultations 05/31/24 16:35 Consult Hospitalist Routine Procedures Performed Operation Date: 05/31/24 11:55 Actual Procedures p L4-L5 Decompression and Fusion, Spinal Cord Monitoring - Jorge A Foy DO Ordered Studies 05/31/24 11:55 FL lumbar spine 2-3V Routine 06/01/24 10:02 US venous doppler LE LT Stat Hospital Course (1) Spondylolisthesis, lumbar region: Patient went lumbar decompression fusion trial as well as taken orthopedic for postoperative. Postop he progressed appropriately. Steady improvement of her pain. IBAN drain decreasing. Extra strength testing. Subsidy discharged home. Discharge orders and instructions from the chart for further view. Total Time Total Time Spent Total Time Spent (In Minutes): 20 minutes Discharge Plan Discharge Items Patient Disposition: Home - Self-Care Reason For Visit: Spondylolisthesis of Lumbar Region Spinal Stenosis Discharge Diagnosis: Lumbar spondylolisthesis with radiculopathy Activity: As commented below Non-emergency contact: Primary Care Provider Call non-emergency contact if: you have any medication questions Follow-up/Referrals: Ashia Ashton DO [Primary Care Provider] - Diet: Regular Addtl Attending Provider Instructions: ACTIVITY RECOMMENDATIONS: SELF CARE INSTRUCTIONS AFTER THORACIC/LUMBAR FUSIONS 1. You may walk to your tolerance. It is good exercise for your legs and back. Expect some back and intermittent leg aches and pains. 2. You may perform "counter-top" level activities (make a sandwich, azar with a project, etc.). 3. No bending or lifting of more than 10 pounds or back twisting of any nature (roll like a log when turning in bed). 4. You may ride in a car for 20-30 minutes at a time. No driving until after your first visit with your doctor. 5. Frequent changes of position and restricting sitting to 30 minutes at a time will help limit the amount of back spasms and stiffness you may experience. 6. You may discontinue the use of ambulatory aids (cane, crutches, etc.) once your strength and confidence allow. 7. You may traveling missionary the shower and let water strike your incision when you arrive home at least once daily. Do not take a tub bath, sit in a hot tub or go into a swimming pool until after your first recheck in the office. 8. You may resume previous diet. SPECIAL CARE INSTRUCTIONS: VERY IMPORTANT TO READ AND REVIEW A. Your surgical incision has been closed with a cosmetic suture under the skin that will dissolve in about 6 weeks. In 14 days, you can use a pair of clean scissors and cut the suture that is left outside of the skin at the ends of your incision. 1. The small skin tapes can be removed 7 days after surgery if they have not fallen off by that point. 2. You may keep the wound open to air as much as possible to promote healing after post-op day number 5 unless told otherwise by your doctor. 3. If you think the wound looks like it is becoming infected (redness or worsening drainage) and/or you are experiencing fever, chill or worsening back pain and muscle spasms, contact the office so that we may evaluate you as soon as possible. B. Complications are uncommon, but please contact us if you have any signs or symptoms of: 1. wound infection (fever higher than 102.5 degrees F, redness, separation of wound, drainage, or increasing pain from the incision) 2. blood clots in legs (pain, swelling, redness and warmth in legs) 3. urinary tract infection (fever higher than 102.5 degrees F, burning upon urination or increased frequency of urination) 4. nerve problems (inability to walk on your toes or heels, numbness, loss of bowel or bladder control) 5. any other symptoms that concern you C. Please call the office at if you have any concerns or questions about your operation or recovery. D. No smoking! Smoking drastically decreases the chance of a solid fusion. E. Do not take any anti-inflammatory medications (Indocin, Advil, Motrin, Aspirin, Naprosyn, etc.) as these may inhibit the chance of a solid fusion. Tylenol is okay to take for pain. MANAGING PAIN AFTER SPINAL SURGERY 1. Narcotic medication is intended for short-term use and will be provided for surgical pain. Surgical pain usually lasts for a period of 4-6 weeks. Narcotic medication includes Percocet, Vicodin, Darvocet, Tylenol #3 or Lortab. 2. Longer-term pain is more appropriately treated with non-narcotic medication such as Tylenol ES. 3. Muscle spasm is not appropriately treated with narcotics. Muscle relaxers such as Soma, Flexeril or Skelaxin can be used along with Tylenol ES. 4. Remember that we all live with some "aches and pains". This is not unusual or uncommon after an injury or as we get older. a. Back pain is expected and may include muscle spasms for 4 to 6 weeks after surgery. The pain should gradually improve. If the pain worsens for no apparent reason, please contact the office. b. Intermittent leg pain may also be experienced and should not be concerned about unless it worsens for no apparent reason. If so, please contact the office. 5. We will provide appropriate medication within the normal guidelines of their prescribed use. We will also be very cautious and aware of potential abuse and extended duration of patients' medication needs. a. Pain medications are for your comfort and to assist with sleep and rest so that the tissue can heal. They are not provided in order to return to normal activity and should not be used through the day. To do so or worsening pain at night can result from ongoing tissue damage and development of tolerance to the prescribed medicine. 6. Please allow 2-3 days to process refills. Prescriptions will not be mailed but must be picked up at the office. FOLLOW UP VISIT: Keep your scheduled follow-up appointment. Any questions, please call the office at . Pending Studies at Discharge: No Stand-Alone Forms: My [employer], Smoking Cessation Medications and DC Order Prescriptions: New oxycodone 5 mg tablet 5 mg PO Q6H PRN (Reason: pain) Qty: 30 0RF gabapentin 300 mg Capsule 300 mg PO TID Qty: 90 2RF cyclobenzaprine 10 mg Tablet 10 mg PO Q8 PRN (Reason: muscle spasm) Qty: 20 0RF Continued Ergocalciferol (Vitamin D Cap) 50,000 INTERUNIT capsule 1 tab PO 2XWK Qty: 0 Elinest 0.3-30 mg-mcg Tablet 1 tab PO HS venlafaxine 150 mg Capsule,Extended Release 24hr 150 mg PO HS nortriptyline 25 mg Capsule 100 mg PO HS pantoprazole 40 mg Tablet,Delayed Release (Dr/Ec) 40 mg PO HS hydrochlorothiazide 25 mg Tablet 25 mg PO QAM bupropion HCl [Wellbutrin XL] 300 mg Tablet Extended Release 24 Hr 300 mg PO HS venlafaxine 75 mg Tablet Extended Release 24hr 75 mg PO HS potassium chloride 20 mEq Tablet Extended Release 20 meq PO HS Discharge Orders: Discharge Order (Routine); Ordered 06/03/24 Ordered By: Jorge A Foy Admission Data Admit Date/Time: 05/31/24 14:07 Attending Provider: Frantz Temple Admit Provider: Jorge A Foy Primary Care Provider: Ashia Ashton Other Providers: Basia Buitrago
[2024-06-03 10:18] VITALS: BP 129/78
--- NOTE | 2024-06-03 12:14 | Hospitalist Progress Note ---
Date of Service June 03, 2024 Assessment & Plan (1) Spondylolisthesis, lumbar region: (2) Encounter for pre-operative examination: (3) GERD (gastroesophageal reflux disease): (4) Bipolar disorder: (5) Post traumatic stress disorder: (6) Depression: (7) Hypertension: Plan Assessment and plan: Lumbar spondylolisthesis: S/p L4-5 lumbar decompression05/31: Pain control/DVT prophylaxis/PT/OT -incentive spirometer -trend Hgb, creatinine Hx HTN: Continue HCTZ Hx depression/bipolar/PTSD: Continue nortriptyline/Wellbutrin/Effexor Hx GERD: Continue pantoprazole I spent a total of 40 minutes in direct patient care, including [id number] time with the patient and/or family, reviewing medical records, ordering and reviewing diagnostic tests, and coordinating care with other healthcare providers. This time includes: history taking, physical examination, medical decision making, counseling, ECG interpretation, imaging interpretation, lab interpretation, orders, and education, excluding time spent in the performance of separately billed services. Admission and Anticipated Discharge Date Admission Date: May 31, 2024 Subjective Patient seen and examined at bedside. Patient states she is going home today. Pleased with her current level of pain control. Review of Systems Review of Systems: CONSTITUTIONAL: Patient denies fevers, chills, sweats and weight changes. EYES: Patient denies any visual symptoms. EARS, NOSE, AND THROAT: No difficulties with hearing. No symptoms of rhinitis or sore throat. CARDIOVASCULAR: Patient denies chest pains, palpitations, orthopnea and paroxysmal nocturnal dyspnea. RESPIRATORY: No dyspnea on exertion, no wheezing or cough. GI: No nausea, vomiting, diarrhea, constipation, abdominal pain, hematochezia or melena. : No urinary hesitancy or dribbling. No nocturia or urinary frequency. No abnormal urethral discharge. MUSCULOSKELETAL: left leg pain NEUROLOGIC: No chronic headaches, no seizures. Patient denies numbness, tingling or weakness. PSYCHIATRIC: Patient denies problems with mood disturbance. No problems with anxiety. ENDOCRINE: No excessive urination or excessive thirst. DERMATOLOGIC: Patient denies any rashes or skin changes. Physical Exam Physical Exam: Gen: A&O 3 NAD HEENT: NCAT, EOMI, not icteric. External ears normal. No rhinorrhea. Moist mucous membranes. Neck: Supple, full range of motion, no observable masses, No meningeal sign. Lungs: No Respiratory distress. CV: RRR, no edema. Abdomen: Soft, nondistended, No rebound tenderness. MSK: No joint swelling, no redness. Noted surgical incision site. Skin: No rashes, petechiae, lesions. Normal color per patient. Neuro: Normal Gait, Grossly intact. Psych: Appropriate for situation. Results & Data Results & Data Vital Signs (Past 12 Hours) Vital Signs Temp Pulse Resp BP BP Pulse Ox O2 Del Method 06/03/24 10:06 36.5 C 92 H 20 127/77 129/78 99 06/03/24 06:54 36.5 C 92 H 20 127/77 99 Room Air Laboratory Results -personally reviewed, no labs today Medications Administered Acetaminophen (Acetaminophen 500 Mg Tab) 1,000 mg PO Q8H PRN PRN Reason: MILD Pain Scale 1,2,3 & Pre PT Stop: 06/30/24 16:34 Last Admin: 06/03/24 08:41 Dose: 1,000 mg Documented By: Admin: 06/01/24 14:09 Dose: 1,000 mg Documented By: TOÑA Bupropion HCl (Bupropion Xl 300 Mg Tabcr) 300 mg PO HS BETO Stop: 06/30/24 20:59 Last Admin: 06/02/24 21:18 Dose: 300 mg Documented By: Admin: 06/01/24 20:23 Dose: 300 mg Documented By: Admin: 05/31/24 20:55 Dose: 300 mg Documented By: HORACE Ergocalciferol (Ergocalciferol 1250 Mcg (50,000 Units) Cap) 1,250 mcg PO Q48H BETO Stop: 07/01/24 08:59 Last Admin: 06/03/24 08:39 Dose: 1,250 mcg Documented By: Admin: 06/01/24 08:16 Dose: 1,250 mcg Documented By: TOÑA Gabapentin (Gabapentin 300 Mg Cap) 300 mg PO TID BETO Stop: 07/01/24 13:59 Last Admin: 06/03/24 08:39 Dose: 300 mg Documented By: Admin: 06/02/24 21:18 Dose: 300 mg Documented By: Admin: 06/02/24 14:11 Dose: 300 mg Documented By: Admin: 06/02/24 08:39 Dose: 300 mg Documented By: Admin: 06/01/24 20:23 Dose: 300 mg Documented By: Admin: 06/01/24 14:09 Dose: 300 mg Documented By: TOÑA Hydrochlorothiazide (Hydrochlorothiazide 25 Mg Tab) 25 mg PO QAM [facility] Stop: 07/01/24 08:59 Last Admin: 06/03/24 08:39 Dose: 25 mg Documented By: Admin: 06/02/24 08:38 Dose: 25 mg Documented By: Admin: 06/01/24 08:16 Dose: 25 mg Documented By: TOÑA Hydromorphone HCl (Hydromorphone Inj 1 Mg/Ml Syringe) 1 mg IV Q3H PRN PRN Reason: SEVERE Pain (Scale 7,8,9,10) Stop: 06/14/24 16:34 Last Admin: 05/31/24 19:20 Dose: 1 mg Documented By: HORACE Methocarbamol (Methocarbamol 500 Mg Tablet) 500 mg PO TID PRN PRN Reason: Muscle Spasm Stop: 06/30/24 18:01 Last Admin: 06/03/24 05:02 Dose: 500 mg Documented By: Admin: 06/02/24 09:48 Dose: 500 mg Documented By: Admin: 06/01/24 17:48 Dose: 500 mg Documented By: Admin: 06/01/24 03:28 Dose: 500 mg Documented By: HORACE Miscellaneous (Order Awaiting Action - Cierra) 1 each N/A [facility] Stop: 07/01/24 00:00 Last Admin: 06/03/24 08:38 Dose: Not Given Documented By: Admin: 06/03/24 03:35 Dose: Not Given Documented By: Admin: 06/02/24 14:45 Dose: Not Given Documented By: Admin: 06/02/24 08:40 Dose: Not Given Documented By: Admin: 06/02/24 01:06 Dose: Not Given Documented By: Admin: 06/01/24 14:38 Dose: Not Given Documented By: Admin: 06/01/24 07:12 Dose: Not Given Documented By: Admin: 06/01/24 01:13 Dose: Not Given Documented By: PNM Nortriptyline HCl (Nortriptyline Hcl 25 Mg Cap) 100 mg PO HS BETO Stop: 06/30/24 20:59 Last Admin: 06/02/24 21:18 Dose: 100 mg Documented By: Admin: 06/01/24 20:23 Dose: 100 mg Documented By: Admin: 05/31/24 20:55 Dose: 100 mg Documented By: PNM Oxycodone HCl (Oxycodone Hcl Ir 5 Mg Tab (Immediate Release)) 5 - 10 mg PO Q4H PRN PRN Reason: Pain & Pre PT Stop: 06/14/24 16:34 Last Admin: 06/01/24 20:22 Dose: 5 mg Documented By: Admin: 06/01/24 10:09 Dose: 5 mg Documented By: Admin: 05/31/24 22:11 Dose: 5 mg Documented By: PNM Pantoprazole Sodium (Pantoprazole 40 Mg Tab) 40 mg PO HS BETO Stop: 06/30/24 20:59 Last Admin: 06/02/24 21:19 Dose: 40 mg Documented By: Admin: 06/01/24 20:23 Dose: 40 mg Documented By: Admin: 05/31/24 20:55 Dose: 40 mg Documented By: PNM Potassium Chloride (Potassium Chloride Crtab 20 Meq Tabcr) 20 meq PO HS BETO Stop: 06/30/24 20:59 Last Admin: 06/02/24 21:19 Dose: 20 meq Documented By: Admin: 06/01/24 20:22 Dose: 20 meq Documented By: Admin: 05/31/24 20:55 Dose: 20 meq Documented By: PNM Senna/Docusate Sodium (Docusate Sodium/Senna 50/8.6mg Tab) 2 tab PO HS BETO Stop: 06/30/24 20:59 Last Admin: 06/02/24 21:19 Dose: Not Given Documented By: Admin: 06/01/24 20:22 Dose: 2 tab Documented By: Admin: 05/31/24 20:56 Dose: 2 tab Documented By: PNM Venlafaxine HCl (Venlafaxine Hcl Xr 75 Mg Capxr) 75 mg PO HS BETO Stop: 06/30/24 20:59 Last Admin: 06/02/24 21:19 Dose: 75 mg Documented By: Admin: 06/01/24 20:23 Dose: 75 mg Documented By: Admin: 05/31/24 20:55 Dose: 75 mg Documented By: HORACE Venlafaxine HCl (Venlafaxine Hcl Xr 150 Mg Capxr) 150 mg PO HS BETO Stop: 06/30/24 20:59 Last Admin: 06/02/24 21:19 Dose: 150 mg Documented By: Admin: 06/01/24 20:23 Dose: 150 mg Documented By: Admin: 05/31/24 20:55 Dose: 150 mg Documented By: HORACE
== END 2024-06-03 15:30 | disposition home or self-care (01) | DRG 402 ==
LOC: ASU 10:09 → SUATTDRO 14:07 → INTOOBSV 14:07 → 3N 14:07
DX: Z68.41 Body mass index [BMI] 40.0-44.9, adult; I10 Essential (primary) hypertension; Z88.8 Allergy status to other drugs, medicaments and biological substances; Z91.040 Latex allergy status; K21.9 Gastro-esophageal reflux disease without esophagitis; M43.16 Spondylolisthesis, lumbar region; G47.33 Obstructive sleep apnea (adult) (pediatric); M48.061 Spinal stenosis, lumbar region without neurogenic claudication; Z88.1 Allergy status to other antibiotic agents; E66.01 Morbid (severe) obesity due to excess calories; Z79.899 Other long term (current) drug therapy; M47.26 Other spondylosis with radiculopathy, lumbar region; Z91.81 History of falling; Z88.5 Allergy status to narcotic agent